=== PATIENT | female | born 1995 | race Caucasian/White ===

== ENCOUNTER 2017-06-19 15:31 | Emergency (ER) | payer OTHER ==
[~2017-06-19] VITALS: Ht 152.4 cm; Wt 66.0 kg
[~2017-06-19 15:31] MED LIST: AUGM875T3 PO; BACT800T5 PO; ULTR50TA5 PO
[2017-06-19 15:32] VITALS: BP 157/101; PULSE 108; RESP 20; TEMP 98.6; O2SAT 100
[2017-06-19] MEDS ORDERED: TETANUS/DIPHTHERIA TOXOID ADULT 0.5 ML VIAL IM ONE (18:45)
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
[2017-06-19] MEDS ORDERED: MOBI15TA PO (20:34)
[2017-06-19] MEDS ORDERED: TRAM50TA PO (20:34)
[2017-06-19] MEDS ORDERED: IBUPROFEN 600 MG TAB PO ONE (20:45)
[2017-06-19] MEDS ORDERED: ACETAMINOPHEN/HYDROcodone 325 MG/5 MG TAB PO ONE (20:45)
[2017-06-19 20:57] VITALS: BP 119/90; PULSE 78; RESP 18; O2SAT 99
== END 2017-06-19 21:01 | disposition home or self-care (01) ==
LOC: NEPD 15:31
DX: T14.8XXA Other injury of unspecified body region, initial encounter (principal); M54.6 Pain in thoracic spine; M25.521 Pain in right elbow; M25.572 Pain in left ankle and joints of left foot; V03.90XA Pedestrian on foot injured in collision with car, pick-up truck or van, unspecified whether traffic or nontraffic accident, initial encounter; Z23 Encounter for immunization
CPT/HCPCS: 72072; 72170; 72220; 73610; 90471; 90714